=== PATIENT | female | born 1945 | race Caucasian/White ===

== ENCOUNTER 2017-10-02 10:13 | Inpatient (IN) | payer MEDICARE, OTHER ==
[~2017-10-02] VITALS: Ht 152.4 cm; Wt 63.2 kg
[~2017-10-02 10:13] MED LIST: BACITRACIN 50,000 UNITS/VIAL ONE; CeFAZolin 2 GM/DEXTROSE 50 ML IV ONE; GENTAMICIN SULFATE 40 MG/ML 2 ML VIAL IM ONE; RINGERS SOLUTION,LACTATED 1,000 ML IV ONE; SODIUM CHLORIDE 0.9% 1,000 ML IV ONE; SODIUM CL IRRIG SOLN BAG 3,000 ML IRRIG ONE
[2017-10-02] MEDS ORDERED: ACETAMINOPHEN 1000 MG/ISO-OSM 100 ML IV ONE (10:27)
[2017-10-02] MEDS ORDERED: CELECOXIB 200 MG CAPSULE ONE ×2 (10:28)
[2017-10-02] MEDS ORDERED: MEPERIDINE-PF 25 MG/ML SYRINGE IVP PRN (10:30)
[2017-10-02] MEDS ORDERED: BUPIVACAINE LIPOSOME/PF 1.3%-13.3MG/ML SUSPENSION 20 ML VIAL INJ ONE (10:30)
[2017-10-02] MEDS ORDERED: FentaNYL CITRATE-PF 100 MCG/2 ML VIAL IVP PRN (10:30)
[2017-10-02] MEDS ORDERED: CYCLOBENZAPRINE HCL 10 MG TABLET PO PRN (10:30)
[2017-10-02] MEDS ORDERED: ZOLPIDEM TARTRATE 5 MG TABLET PO PRN (10:30)
[2017-10-02] MEDS ORDERED: PROMETHAZINE HCL 25 MG/ML VIAL IM PRN (10:30)
[2017-10-02] MEDS ORDERED: TRANEXAMIC ACID 1,000 MG in DEXTROSE 5%-WATER 50 ML IV ONE ×2 (10:30→11:00)
[2017-10-02] MEDS ORDERED: HYDROmorphone 2 MG/ML SYRINGE IVP PRN ×2 (10:30)
[2017-10-02] MEDS ORDERED: CELECOXIB 200 MG CAPSULE PO ONE (10:30)
[2017-10-02] MEDS ORDERED: ONDANSETRON HCL 4 MG/2 ML VIAL IVP PRN ×2 (10:30→14:45)
[2017-10-02] MEDS ORDERED: SODIUM CHLORIDE 0.9% 50 ML ONE (10:38)
[2017-10-02] MEDS ORDERED: SODIUM CHLORIDE 0.9% 30 ML ONE (10:38)
[2017-10-02] MEDS: ACETAMINOPHEN 1000 MG/ISO-OSM 100 ML IV SCH ×3 (11:07→22:34)
[2017-10-02] MEDS ORDERED: PROPOFOL 1000 MG/ISO-OSM 100 ML IV ONE (13:06)
[2017-10-02] MEDS ORDERED: MAG HYDROX/AL HYDROX/SIMETH 30 ML SUSP UDCUP PO PRN (14:45)
[2017-10-02] MEDS ORDERED: BISACODYL 10 MG RECTAL RECTAL SUPPOSITORY PR PRN (14:45)
[2017-10-02] MEDS ORDERED: BENZOCAINE/MENTHOL LOZENGE [8 LOZENGES/PACKET] PO PRN (14:45)
[2017-10-02] MEDS ORDERED: ACETAMINOPHEN 1000 MG/ISO-OSM 100 ML IV SCH (14:45)
[2017-10-02] MEDS ORDERED: ZOLPIDEM TARTRATE 10 MG TABLET PO PRN (14:45)
[2017-10-02] MEDS ORDERED: DiphenhydrAMINE HCL 50 MG/ML VIAL IVP PRN (14:45)
[2017-10-02 16:01] VITALS: BP 127/70
[2017-10-02 20:00] VITALS: BP 120/60
[2017-10-02] MEDS: OXYGEN THERAPY IH SCH (20:00)
[2017-10-02] MEDS: CELECOXIB 200 MG CAPSULE PO SCH (20:48)
[2017-10-02] MEDS: DOCUSATE SODIUM 100 MG CAPSULE PO SCH (20:49)
[2017-10-02] MEDS: FAMOTIDINE 20 MG TABLET PO SCH (20:49)
[2017-10-02] MEDS: FERROUS SULFATE 325 MG EC TABLET PO SCH (20:49)
[2017-10-02] MEDS: CeFAZolin 1 GM/DEXTROSE 50 ML IV SCH (20:49)
[2017-10-02] MEDS: RIVAROXABAN 10 MG TABLET PO SCH (21:50)
[2017-10-02] MEDS: SODIUM CHLORIDE 0.45% 1,000 ML IV SCH (22:32)
[2017-10-02 23:13] VITALS: BP 126/57
[2017-10-03] VITALS (8 sets, daily range): BP systolic 92–130; BP diastolic 43–72
[2017-10-03] MEDS ORDERED: PHENYLEPHRINE HCL 10 MG/ML VIAL IVP ONE (00:31)
[2017-10-03] MEDS ORDERED: EPHEDrine SULFATE 50 MG/ML VIAL IM ONE (00:31)
[2017-10-03] MEDS ORDERED: MIDAZOLAM HCL 2 MG/2 ML VIAL IVP ONE (00:31)
[2017-10-03] MEDS ORDERED: 0.9% SODIUM CHLORIDE 10 ML VIAL IVP ONE (00:31)
[2017-10-03] MEDS ORDERED: FentaNYL CITRATE-PF 100 MCG/2 ML VIAL IVP ONE (00:31)
[2017-10-03] MEDS: SODIUM CHLORIDE 0.45% 1,000 ML IV SCH ×2 (04:02→20:00)
[2017-10-03] MEDS: CeFAZolin 1 GM/DEXTROSE 50 ML IV SCH (04:13)
[2017-10-03] MEDS: ACETAMINOPHEN 1000 MG/ISO-OSM 100 ML IV SCH ×2 (04:51→10:30)
[2017-10-03 07:35] LABS: BASOPHILS % (AUTO) 0.4 % (0.0-2.0); EOSINOPHILS % (AUTO) 3.4 % (1.0-6.0); HEMATOCRIT 36.6 % (36-46); HEMOGLOBIN 12.5 g/dL (12.0-16.0); LYMPHOCYTES # (AUTO) 1.4 K/uL (1.0-4.8); LYMPHOCYTES % (AUTO) 15.7 % (22.0-44.0); MEAN CORPUSCULAR HGB CONC 34.3 G/dL (31.0-37.0); MEAN CORPUSCULAR VOLUME 88 fL (80-100); MONOCYTES # (AUTO) 0.7 K/uL (0.1-1.0); MONOCYTES % (AUTO) 7.6 % (2.0-9.0); NEUTROPHILS # (AUTO) 6.6 K/uL (1.8-7.7); NEUTROPHILS % (AUTO) 72.9 % (40.0-70.0); PLATELET COUNT (AUTO) 237 K/uL (150-450); RED BLOOD CELL COUNT(AUTO) 4.18 MIL/uL (4.00-5.20); RED CELL DISTRIBUTION WIDTH 14.2 % (11.5-14.5)
[2017-10-03] MEDS: OXYGEN THERAPY IH SCH ×2 (08:00→20:00)
[2017-10-03 08:02] LABS: ANION GAP 5 mmol/L (8-16); CALCIUM, TOTAL 7.9 mg/dL (8.8-10.5); CARBON DIOXIDE 29 mmol/L (22-29); CHLORIDE 107 mmol/L (98-107); GLOMERULAR FILTR. RATE CALC > 60 mL/min (>60); GLUCOSE,RANDOM 87 mg/dL (70-110); POTASSIUM 4.2 mmol/L (3.5-5.1); SODIUM SERUM 141 mmol/L (136-145); UREA NITROGEN, BLOOD 10 mg/dL (7-18)
[2017-10-03] MEDS: FAMOTIDINE 20 MG TABLET PO SCH ×2 (08:55→20:30)
[2017-10-03] MEDS: FERROUS SULFATE 325 MG EC TABLET PO SCH ×2 (08:55→16:29)
[2017-10-03] MEDS: CELECOXIB 200 MG CAPSULE PO SCH ×2 (08:56→20:30)
[2017-10-03] MEDS: DOCUSATE SODIUM 100 MG CAPSULE PO SCH ×2 (08:56→20:30)
[2017-10-03] MEDS: OxyCODONE HCL/ACETAMINOPHEN 10-325 MG TABLET PO PRN ×3 (12:15→21:41)
[2017-10-03] MEDS: RIVAROXABAN 10 MG TABLET PO SCH (16:29)
[2017-10-04] VITALS (8 sets, daily range): BP systolic 99–154; BP diastolic 54–91
[2017-10-04 06:22] LABS: BASOPHILS # (AUTO) 0.04 K/uL (0.00-0.20); BASOPHILS % (AUTO) 0.3 % (0.0-2.0); EOSINOPHILS # (AUTO) 0.09 K/uL (0.00-0.70); EOSINOPHILS % (AUTO) 0.79 % (1.0-6.0); HEMATOCRIT 34.9 % (36-46); HEMOGLOBIN 11.6 g/dL (12.0-16.0); LYMPHOCYTES # (AUTO) 1.5 K/uL (1.0-4.8); LYMPHOCYTES % (AUTO) 12.8 % (22.0-44.0); MEAN CORPUSCULAR HEMOGLOBIN 29.7 pg (26.0-34.0); MEAN CORPUSCULAR HGB CONC 33.1 G/dL (31.0-37.0); MEAN CORPUSCULAR VOLUME 89 fL (80-100); MONOCYTES # (AUTO) 0.9 K/uL (0.1-1.0); MONOCYTES % (AUTO) 7.8 % (2.0-9.0); NEUTROPHILS % (AUTO) 78.3 % (40.0-70.0); PLATELET COUNT (AUTO) 228 K/uL (150-450)
[2017-10-04] MEDS: DOCUSATE SODIUM 100 MG CAPSULE PO SCH (09:05)
[2017-10-04] MEDS: FAMOTIDINE 20 MG TABLET PO SCH (09:05)
[2017-10-04] MEDS: CELECOXIB 200 MG CAPSULE PO SCH (09:05)
[2017-10-04] MEDS: FERROUS SULFATE 325 MG EC TABLET PO SCH (09:05)
[2017-10-04] MEDS: OxyCODONE HCL/ACETAMINOPHEN 10-325 MG TABLET PO PRN (09:08)
== END 2017-10-04 14:30 | disposition home or self-care (01) | DRG 470 ==
LOC: 4E 10:13
PROVIDERS: ADMIT Orthopaedic Surgery; ATTEND Orthopaedic Surgery
PROC: 8E0Y0CZ Robotic Assisted Procedure of Lower Extremity, Open Approach (ICD-10-PCS; 2017-10-02)
PROC: 0SRD0J9 Replacement of Left Knee Joint with Synthetic Substitute, Cemented, Open Approach (ICD-10-PCS; principal; 2017-10-02 12:00)
DX: M17.12 Unilateral primary osteoarthritis, left knee (principal)
CPT/HCPCS: 88300; 97110; 97116; 97162; C9290; G0238; J0131; J0690; J1580; J2250; J2370; J2405; J2704; J3010; J3490; J7050; J7060; J7120